=== PATIENT | female | born 1985 | race Caucasian/White ===

== ENCOUNTER 2016-06-24 03:55 | Observation (INO) | payer SELFPAY ==
[2016-06-24] VITALS (17 sets, daily range): BP systolic 98–123; BP diastolic 47–80; PULSE 79–83; RESP 10–22; TEMP 96.7–98.2; O2SAT 98–100; Ht 162.6 cm; Wt 52.0 kg
[~2016-06-24] VITALS: Ht 162.6 cm; Wt 52.0 kg
[2016-06-24] MEDS ORDERED: NORMAL SALINE 1,000 ML IV ONE (04:14)
[2016-06-24] MEDS ORDERED: HALOPERIDOL 5 MG/ML INJECTION IM ONE (04:15)
[2016-06-24] MEDS ORDERED: LORAZEPAM 2 MG/ML INJECTION IV ONE (04:15)
--- NOTE | 2016-06-24 04:15 | NUR ---
IV UNSUCCESSFUL IV ATTEMPT TO L FOREARM MADE AT THIS TIME BY DOMINIQUE CESPEDES.
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
--- NOTE | 2016-06-24 04:50 | NUR ---
SLEEPING PT IS NOW SLEEPING SOUNDLY IN BED.
[2016-06-24 05:22] LABS: HCT - HEMATOCRIT 34.7 % (36-46); HGB - HEMOGLOBIN 11.7 GM/DL (12-16); MEAN CORPUSCULAR HGB 28.7 UUG (26-34); MEAN CORPUSCULAR HGB CONC(MCHC 33.7 GM/DL (31-37); MEAN CORPUSCULAR VOLUME 85.3 UM3 (80-100); RED BLOOD COUNT 4.07 M/MM3 (4.00-5.20)
[2016-06-24 05:25] LABS: BLOOD, URINE TRACE-INTACT (NEGATIVE); COLOR,URINE YELLOW (YELLOW); LEUKOCYTE ESTERASE ,URINE NEGATIVE (NEGATIVE); NITRITE,URINE NEGATIVE (NEGATIVE); UROBILINOGEN,URINE 0.2 EU/DL (NORMAL)
--- NOTE | 2016-06-24 05:30 | NUR ---
IMAGING PT IS TAKEN VIA CART FOR CT SCAN AT THIS TIME ACCOMPANIED BY OLESYA CESPEDES, RESTRAINTS ARE REMOVED.
[2016-06-24 05:31] LABS: AMMONIA 19 UMOL/L (9-33)
[2016-06-24 05:32] LABS: ACETAMINOPHEN < 10 UG/ML (10-30); ALBUMIN 4.1 G/DL (3.5-5.0); ALBUMIN/GLOBULIN RATIO 1.4 RATIO (1.1-2.2); ALKALINE PHOSPHATASE 84 U/L (38-126); ALT (SGPT) 38 U/L (9-52); ANION GAP 18 MEQ/L (5-15); AST (SGOT) 36 U/L (14-36); BUN/CREATININE RATIO 26 RATIO (6-26); CALCIUM 9.3 MG/DL (8.4-10.2); CHLORIDE 108 MEQ/L (98-107); CO2 - CARBON DIOXIDE 19 MEQ/L (22-30); CREATININE 0.9 MG/DL (0.7-1.2); ETHANOL <10 MG/DL (<10); GLOMERULAR FILTRATION RATE 75; GLUCOSE 101 MG/DL (65-110); SALICYLATE < 1.0 MG/DL (2-20); SODIUM 145 MEQ/L (134-144)
[2016-06-24 05:33] LABS: AMPHETAMINE SCREEN,URINE POSITIVE; BARBITURATE SCREEN,URINE NEGATIVE; BENZODIAZEPINES SCREEN,URINE NEGATIVE; CANNABINOID SCREEN,URINE NEGATIVE; COCAINE SCREEN,URINE NEGATIVE; METHADONE SCREEN, URINE NEGATIVE; METHAMPHETAMINE SCREEN, URINE POSITIVE; OPIATE SCREEN,URINE NEGATIVE; PHENCYCLIDINE SCREEN,URINE NEGATIVE; TRICYCLIC ANTIDEPRESSANT,URINE NEGATIVE
--- NOTE | 2016-06-24 05:38 | NUR ---
RETURN PT RETURNS TO ROOM, REMAINS ASLEEP, RESTRAINTS ARE REAPPLIED.
[2016-06-24 05:39] LABS: POTASSIUM 2.5 MEQ/L (3.6-5)
[2016-06-24 05:42] LABS: BACTERIA,URINE NONE SEEN (NEGATIVE); MUCUS,URINE PRESENT; RBC,URINE NONE SEEN /HPF (0-3); SQUAMOUS EPITHELIAL CELL,UR 0-5; WBC,URINE NONE SEEN /HPF (0-5)
--- NOTE | 2016-06-24 05:50 | NUR ---
PAST MEDICAL PT REMAINS ASLEEP AND WHEN SHE DOES AWAKE MAKES NONSENSICAL STATEMENTS, AT TIMES IS ABLE TO ANSWER QUESTIONS CORRECTLY WITH ONE WORD. PT IS ABLE TO TELL STAFF THAT SHE HAS NO ALLERGIES TO MEDICATIONS BUT IS UNABLE TO COMPLETE PAST MEDICAL HISTORY WITH STAFF.
[2016-06-24 05:59] LABS: LYMPHOCYTES # (MANUAL) 4.7 T/MM3 (1-4.8); MONOCYTES # (MANUAL) 0.8 T/MM3 (0-0.8); NEUTROPHILS #(MANUAL)-ABSOLUTE 9.6 T/MM3 (1.8-7.7); TOTAL CELLS COUNTED 100 %
[2016-06-24] MEDS ORDERED: NS KCL 20 MEQ 1,000 ML IV ONE (06:00)
--- NOTE | 2016-06-24 06:10 | NUR ---
RESTRAINTS REMOVED PT IS DOZING. VS STABLE. MONITOR SR
--- NOTE | 2016-06-24 06:10 | NUR ---
SKIN NON ACUTE SKIN WOUND NOTED ON INSIDE OF L WRIST. DOCUMENTED WITH PHOTO BY SUKI DYSON RN
--- NOTE | 2016-06-24 06:10 | NUR ---
TELEHOSPITALIST DR HARTLEY ASSESSED PT.
[2016-06-24] MEDS ORDERED: LORAZEPAM 2 MG/ML INJECTION IV PRN (06:15)
[2016-06-24] MEDS ORDERED: D5-1/2 NS 1,000 ML IV SCH (06:16)
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
[2016-06-24] MEDS ORDERED: ONDANSETRON 4mg/2ml INJECTION IV PRN (06:30)
--- NOTE | 2016-06-24 06:50 | NUR ---
ACTIVITY NURSE OBSERVED THAT PT HAS REPOSITIONED HERSELF FOR COMFORT THOUGH SHE REMAINS SOMNOLENT
--- NOTE | 2016-06-24 06:58 | NUR ---
REPORT TO KRYSTIAN CESPEDES
--- NOTE | 2016-06-24 07:10 | NUR ---
TRANSPORTED PER CART ON TELEMETRY ACCOMPANIED BY RHINA CESPEDES TO CCU 1. CARE ASSUMED BY PRISCILLA CESPEDES. PT AROUSED & ATTEMPTED TO HELP US MOVE HER TO BED.
--- NOTE | 2016-06-24 07:10 | NUR ---
ADMIT Female adm per cart to CCU-1. Nonverbal. Moans, moves all extremities.
--- NOTE | 2016-06-24 08:03 | DI ---
EXAM: CT HEAD W/O CONTRAST LOCATION OF DICTATION: [facility] HISTORY: ITS.REASON: mental status change COMPARISON: No prior studies available for comparison. TECHNIQUE: Multiple contiguous axial images were obtained of the head without contrast. Iterative Reconstruction dose reducing technique was utilized. FINDINGS: The ventricles and sulci are within normal limits for the patient's age. There is no midline shift or mass effect. The basilar cisterns are patent. The terry-white matter interface is within normal limits. There is no evidence for acute intraparenchymal or extra-axial hemorrhage. The paranasal sinuses and mastoid air cells are clear. The globes and orbits are within normal limits. There are no calvarial fractures demonstrated. IMPRESSION: 1. No evidence for acute intracranial process or hemorrhage. .
--- NOTE | 2016-06-24 08:10 | NUR ---
STATUS Lab in to draw blood. Patient says "ouch" when stuck. Tremors like shivering when stimulated.
[2016-06-24] MEDS: NS KCL 20 MEQ 1,000 ML IV SCH ×3 (08:15→23:46)
[2016-06-24 08:45] LABS: VBG TOTAL CO2 27.2 MEQ/L
[2016-06-24 08:46] LABS: BASOPHILS % (AUTO) 0.2 % (0-2); EOSINOPHILS # (AUTO) 0.1 T/MM3 (0-0.5); EOSINOPHILS % (AUTO) 0.9 % (0-4); HCT - HEMATOCRIT 35.1 % (36-46); HGB - HEMOGLOBIN 11.5 GM/DL (12-16); IMMATURE GRANULOCYTE # (AUTO) 0.03 T/MM3 (0.00-0.03); IMMATURE GRANULOCYTE % (AUTO) 0.2 % (0.0-0.5); LYMPHOCYTES # (AUTO) 3.9 T/MM3 (1-4.8); LYMPHOCYTES % (AUTO) 32.3 % (23-45); MEAN CORPUSCULAR HGB 28.5 UUG (26-34); MEAN CORPUSCULAR HGB CONC(MCHC 32.8 GM/DL (31-37); MEAN CORPUSCULAR VOLUME 87.1 UM3 (80-100); MEAN PLATELET VOLUME 10.1 UM3 (9.4-12.4); MONOCYTES # (AUTO) 1.1 T/MM3 (0-0.8); NEUTROPHILS #(AUTO)-ABSOLUTE 6.9 T/MM3 (1.8-7.7); NEUTROPHILS % (AUTO) 57.4 % (33-66); RED BLOOD COUNT 4.03 M/MM3 (4.00-5.20); WBC - WHITE BLOOD COUNT 12.1 T/MM3 (4.5-11.0)
[2016-06-24 09:00] LABS: ANION GAP 13 MEQ/L (5-15); BUN/CREATININE RATIO 24 RATIO (6-26); CALCIUM 8.4 MG/DL (8.4-10.2); CHLORIDE 110 MEQ/L (98-107); CO2 - CARBON DIOXIDE 24 MEQ/L (22-30); CREATININE 0.9 MG/DL (0.7-1.2); GLOMERULAR FILTRATION RATE 75; GLUCOSE 76 MG/DL (65-110); MAGNESIUM 2.2 MG/DL (1.6-2.3); POTASSIUM 3.5 MEQ/L (3.6-5); SODIUM 147 MEQ/L (134-144)
--- NOTE | 2016-06-24 12:00 | NUR ---
STATUS Patient sleeps. Awakened for assess. Does sit up and asks, "where am I?" Reoriented. Did respond approp w/ her date. Then fell back asleep.
--- NOTE | 2016-06-24 16:00 | NUR ---
STATUS Dr. Acharya in to see patient. Bladder scan show 244cc's in bladder. Patient denies need to use the restroom. Patient responsive but falls asleep easily. Did take some ice chips and drink a glass of water.
[2016-06-24 17:15] LABS: ANION GAP 11 MEQ/L (5-15); BUN/CREATININE RATIO 24 RATIO (6-26); CHLORIDE 114 MEQ/L (98-107); CO2 - CARBON DIOXIDE 21 MEQ/L (22-30); CREATININE 0.8 MG/DL (0.7-1.2); GLOMERULAR FILTRATION RATE 85; GLUCOSE 71 MG/DL (65-110); POTASSIUM 3.9 MEQ/L (3.6-5); SODIUM 146 MEQ/L (134-144)
--- NOTE | 2016-06-24 18:25 | NUR ---
STATUS Awake. States "I thought this wasn't real." Asks if her mom knows she is here. Knows her name and that she is in a hospital. Drinks a glass of water and eats some pudding and then rolls over and goes to sleep.
--- NOTE | 2016-06-24 19:35 | NUR ---
FAMILY MOTHER OF PATIENT, CLARISSA, WAS CALLED ABOUT DAUGHTER BEING A PATIENT IN CCU. UPDATE ON PATIENT GIVEN ALONG WITH SHORT HISTORY OF PATIENT GIVEN BY MOTHER TO NURSE. MOTHER CONCERNED ABOUT WHERE PATIENT WILL GO FROM HERE. MOTHER SAYS SHE WILL BE HERE IN THE MORNING.
--- NOTE | 2016-06-24 22:10 | NUR ---
OUTPUT UP TO BR WITH ASSIST. UNSTEADY. COOPERATIVE AND APPROPRIATE. VOIDED DARK CONCENTRATED URINE. BACK TO SLEEP.
[2016-06-25] VITALS (17 sets, daily range): BP systolic 101–120; BP diastolic 58–77; PULSE 76–101; RESP 13–46; TEMP 98–98.4; O2SAT 97–99
--- NOTE | 2016-06-25 02:15 | NUR ---
TELEMEDICINE SAW PT ALONG WITH . DISCUSSION OF CARE.
--- NOTE | 2016-06-25 06:18 | NUR ---
STATUS HAS BEEN SLEEPING. AWAKENS TO NAME AND HAS BEEN COOPERATIVE.
[2016-06-25 06:34] LABS: BASOPHILS % (AUTO) 0.2 % (0-2); EOSINOPHILS # (AUTO) 0.2 T/MM3 (0-0.5); EOSINOPHILS % (AUTO) 2.4 % (0-4); HCT - HEMATOCRIT 35.3 % (36-46); HGB - HEMOGLOBIN 11.1 GM/DL (12-16); IMMATURE GRANULOCYTE # (AUTO) 0.01 T/MM3 (0.00-0.03); IMMATURE GRANULOCYTE % (AUTO) 0.1 % (0.0-0.5); LYMPHOCYTES # (AUTO) 1.8 T/MM3 (1-4.8); LYMPHOCYTES % (AUTO) 19.1 % (23-45); MEAN CORPUSCULAR HGB 28.2 UUG (26-34); MEAN CORPUSCULAR HGB CONC(MCHC 31.4 GM/DL (31-37); MEAN CORPUSCULAR VOLUME 89.6 UM3 (80-100); MEAN PLATELET VOLUME 9.5 UM3 (9.4-12.4); MONOCYTES # (AUTO) 0.4 T/MM3 (0-0.8); MONOCYTES % (AUTO) 3.8 % (0-9.0); NEUTROPHILS #(AUTO)-ABSOLUTE 7.1 T/MM3 (1.8-7.7); NEUTROPHILS % (AUTO) 74.4 % (33-66); RED BLOOD COUNT 3.94 M/MM3 (4.00-5.20); WBC - WHITE BLOOD COUNT 9.5 T/MM3 (4.5-11.0)
[2016-06-25 06:43] LABS: ALBUMIN 3.1 G/DL (3.5-5.0); ANION GAP 11 MEQ/L (5-15); BUN/CREATININE RATIO 16 RATIO (6-26); CALCIUM 7.9 MG/DL (8.4-10.2); CHLORIDE 115 MEQ/L (98-107); CO2 - CARBON DIOXIDE 19 MEQ/L (22-30); CREATININE 0.7 MG/DL (0.7-1.2); GLOMERULAR FILTRATION RATE 100; GLUCOSE 71 MG/DL (65-110); POTASSIUM 4.1 MEQ/L (3.6-5); SODIUM 145 MEQ/L (134-144)
--- NOTE | 2016-06-25 07:38 | NUR ---
STATUS PT AWAKENS TO NAME, OPENING EYES. PT CLOSES EYES, ANSWERING RN QUESTIONS APPROPRIATELY. PT IS PASSIVE. PT ASKS, "AM I BEING SEDATED." RN CONFIRMS PT IS NOT BEING SEDATED. PT COOPERATIVE WITH RN SHIFT ASSESSMENT, DECLINING BATH, BUT AGREES TO CONSIDER LATER. WILL CONTINUE TO MONITOR.
[2016-06-25] MEDS: NS KCL 20 MEQ 1,000 ML IV SCH (08:05)
[2016-06-25 08:45] LABS: PHOSPHORUS 2.7 MG/DL (2.5-4.5)
--- NOTE | 2016-06-25 09:16 | NUR ---
STATUS-FAMILY PT MOTHER CALLED. PT SPOKE WITH MOTHER WITHOUT EVENT. PT REPORTS THAT MOTHER WILL NOT VISIT HER TODAY. RN PROVIDED PRESENCE. PT DENIES PAIN AND IS WITHOUT FURTHER COMPLAINT AT THIS TIME. WILL CONTINUE TO MONITOR.
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
--- NOTE | 2016-06-25 15:30 | NUR ---
CM THIS WORKER MET AGAIN WITH PT ON THIS DATE. MOTHER OF PT WAS ALSO PRESENT TO TRANSPORT PT. MOTHER REPORTED THAT SHE WAS PLANNING TO TAKE PT TO HER HOME TO STAY WITH HER FOR A FEW DAYS. THIS WORKER ENCOURAGE MOTHER AND PT TO CONTACT THIS WORKER WITH ANY OUTPATIENT NEEDS. CONTACT INFORMATION WAS CONFIRMED TO BE IN POSSESSION OF THE PT.
--- NOTE | 2016-06-25 15:55 | NUR ---
STATUS/DISCHARGE PT IS A&OX3. VSS. PT CONTINUED TO REST WITH EYES CLOSED MOST OF THE SHIFT. PT ABLE TO SIT-UP AND LISTEN TO DISCHARGE INSTRUCTIONS WITH MOTHER AT BEDSIDE. PT ACKNOWLEDGED INSTRUCTIONS WITHOUT ASKING ANY QUESTIONS. RN ASKED PT IF SHE UNDERSTOOD DR. CANCHOLA'S RECOMMENDATION TO GET A PCP, AND ENCOURAGEMENT TO SEEK DRUG TREATMENT. PT ACKNOWLEDGED UNDERSTANDING WITHOUT FURTHER COMMITMENT. RN ENCOURAGED PT TO SEEK DRUG TREATMENT. PT ACKNOWLEDGES SHE NEEDS TO MAKE A CHANGE, WITHOUT FURTHER COMMENT. PT CHANGED INTO CLOTHING PROVIDED BY ASSISTANT DRAFTER, SHE REPORTED SOME STIFFNESS IN HER LIMBS. PT AND MOTHER ACKNOWLEDGE THAT PT WILL USE TYLENOL AT HOME IF NEEDED. CONTACT INFORMATION FOR ASSISTANT DRAFTER TAKEN BY PT MOTHER. PT TRANSFERRED BY WHEELCHAIR TO FRONT ENTRANCE TO FAMILY CAR, MOTHER DRIVING. MOTHER EXPRESSED CONCERN ABOUT POTENTIAL INJURIES PT MAY HAVE RECEIVED DURING THE PERIOD OF TIME THAT SHE HAS NO RECOLLECTION. RN CONFIRMED THAT A CT OF PT HEAD WAS TAKEN AND WAS NEGATIVE FOR INJURY. RN ENCOURAGED MOTHER TO ASSIST PT WITH FINDING A PCP TO SUPPORT PT NEEDS FOR PSYCHIATRIC MEDICATION MANAGEMENT AND DRUG TREATMENT. MOTHER ACKNOWLEDGES THAT SHE WILL TRY TO HELP PT IN EVERY WAY POSSIBLE.
--- NOTE | 2016-06-28 20:36 | NUR ---
Lab Results Request Pt's mother called this evening requesting lab results of pt's recent stay. RN explains that she is unable to provide that information. Recommends contacting pt's PCP to request information, or [facility] Medical records on Thursday. Suggests pt signs into patient portal as information may be available that route. Adamant that she speaks with Antoinette, pt's RN from last week. This RN explains that Antoinette is also unable to provide these results. Pt's mom explains that pt is now having some sort of reaction to either the medication or food and asks which it is. RN attempts to explain that we are not able to determine the cause of the rash. Pt must be seen in person by a physician. Recommends pt go to nearest ER if experiencing allergic reaction. This RN consulted with Drying Machine Operator. Addendum: 06/28/16 at 2044 by DEBI SANDERS RN RN offered to assist with patient portal access if able to speak with pt directly. Pt's mother states, "she's in the living room watching tv. She asked me to call." RN reiterates speaking with pt directly. Pt's mother declines assistance. End of phone call.
== END 2016-06-25 15:55 | disposition home or self-care (01) ==
LOC: ED 03:55 → EDHOLD 06:09 → CCU 07:10 → EDHOLD 07:10
PROVIDERS: ADMIT Hospitalist; ATTEND Internal Medicine
DX: T43.621A Poisoning by amphetamines, accidental (unintentional), initial encounter (principal); G92 Toxic encephalopathy; Y92.89 Other specified places as the place of occurrence of the external cause; E87.6 Hypokalemia; D64.9 Anemia, unspecified; D72.829 Elevated white blood cell count, unspecified; E87.2 Acidosis; Z78.1 Physical restraint status; Z91.410 Personal history of adult physical and sexual abuse
CPT/HCPCS: 36415; 51701; 80048; 80053; 80069; 80306; 80307; 81001; 82140; 82803; 83735; 84443; 84484; 84703; 85025; 93005; 96360; 96361; 96372; 99218